=== PATIENT | female | born 1970 | race Caucasian/White ===

== ENCOUNTER 2023-12-18 05:50 | Day surgery (SDC) | payer BC ==
[~2023-12-18] VITALS: Ht 162.6 cm; Wt 78.5 kg
[2023-12-18 06:42] LABS: HCG,QUAL RESULT NEGATIVE (NEGATIVE)
[2023-12-18] MEDS ORDERED: ePHEDrine sulfate 50 MG/ML VIAL ONE (07:30)
[2023-12-18] MEDS ORDERED: HYDROmorphone 2 MG/ML VIAL IVP PRN (08:45)
[2023-12-18] MEDS ORDERED: HYDROmorphone 1 MG/ML INJ. CARTRIDGE IVP PRN (08:45)
[2023-12-18] MEDS ORDERED: ONDANSETRON HCL 4 MG/2 ML VIAL IVP PRN (08:45)
[2023-12-18] MEDS ORDERED: LR 1,000 ML IV SCH (08:45)
[2023-12-18] MEDS ORDERED: KETOROLAC TROMETHAMINE 30 MG VIAL IVP PRN (08:45)
[2023-12-18 14:04] VITALS: O2SAT 98
[2023-12-18 16:31] VITALS: BP_SYST 142; PULSE 80; RESP 16; TEMP 97.6
== END 2023-12-18 11:15 | disposition home or self-care (01) ==
LOC: SDS 05:50 → SMU 05:50 → SDS 11:15
PROVIDERS: ATTEND Urology
DX: N13.2 Hydronephrosis with renal and ureteral calculous obstruction (principal); I10 Essential (primary) hypertension; E11.9 Type 2 diabetes mellitus without complications; E78.5 Hyperlipidemia, unspecified; E66.3 Overweight; Z68.29 Body mass index [BMI] 29.0-29.9, adult; Z87.442 Personal history of urinary calculi; Z79.84 Long term (current) use of oral hypoglycemic drugs; Z79.899 Other long term (current) drug therapy
CPT/HCPCS: 82948; 84703; 87081; J1885; J2405; J2704; J2765; J3010; J3465; J3490; J7120